=== PATIENT | male | born 1985 | race Caucasian/White ===

== ENCOUNTER → 2016-10-30 | Outpatient (REF) | payer OTHER ==
[~2016-10-30] MED LIST: ADV250INH INH; ADVA230A INH; IBUP800T23 PO; PROA1AER INH
[2016-11-02 14:15] LABS: D001-IgE D pteronyssinus 0.13 kU/L (Class 0/I); E005-IgE Dog Dander 1.54 kU/L (Class III); G002-IgE Bermuda Grass < 0.10 kU/L (Class 0); G008-IgE Kentucky Bluegrass < 0.10 kU/L (Class 0); M001-IgE Penicillium chrysogen < 0.10 kU/L (Class 0); M002 IgE Cladosporium herbaru < 0.10 kU/L (Class 0); M003 IgE Aspergillus fumigatu < 0.10 kU/L (Class 0); M006-IgE Alternaria alternata < 0.10 kU/L (Class 0); T001-IgE Maple/Box Elder < 0.10 kU/L (Class 0); T003-IgE Common Silver Birch < 0.10 kU/L (Class 0); T007-IgE Oak, White < 0.10 kU/L (Class 0); T008-IgE Elm, American < 0.10 kU/L (Class 0); T015-IgE Ash, White < 0.10 kU/L (Class 0); T041-IgE Hickory, White < 0.10 kU/L (Class 0); W001-IgE Ragweed, Short < 0.10 kU/L (Class 0); W009-IgE Plantain, English < 0.10 kU/L (Class 0); W014-IgE Pigweed, Rough < 0.10 kU/L (Class 0); W018-IgE Sheep Sorrel < 0.10 kU/L (Class 0)
== END ==
LOC: M LAB REF 12:44
PROVIDERS: ATTEND Nurse Practitioner Adult Health
DX: J45.40 Moderate persistent asthma, uncomplicated (principal)

== ENCOUNTER 2016-10-31 15:50 | Inpatient (IN) | payer OTHER ==
[~2016-10-31] VITALS: Ht 167.6 cm; Wt 103.4 kg
[2016-10-31] MEDS ORDERED: ADV250INH INH (16:05)
[2016-10-31] MEDS ORDERED: PROA1AER INH (16:06)
[2016-10-31] MEDS ORDERED: IBUP800T23 PO (16:07)
[2016-10-31 17:40] LABS: MEAN CORPUSCULAR HEMOGLOBIN 30.9 pg (27.0-33.0); MEAN CORPUSCULAR HGB CONC 34.8 g/dl (32.0-36.5); MEAN CORPUSCULAR VOLUME 88.8 fl (80.0-96.0); RED CELL DISTRIBUTION WIDTH 12.5 % (11.5-14.5); WHITE BLOOD COUNT 6.2 K/mm3 (4.0-10.0)
[2016-10-31] MEDS ORDERED: IBUPROFEN 600 MG TAB PO ONE (17:45)
[2016-10-31 18:14] LABS: METHADONE URINE NEGATIVE (NEGATIVE)
[2016-10-31 18:14] LABS: ALBUMIN 3.7 GM/DL (3.2-5.2); ALBUMIN/GLOBULIN RATIO 1.12 (1.00-1.93); ALKALINE PHOSPHATASE 85 U/L (45-117); ALT/SGPT 97 U/L (12-78); ANION GAP 11 MEQ/L (8-16); AST/SGOT 26 U/L (15-37); BILIRUBIN,DIRECT < 0.1 MG/DL (0.0-0.2); BILIRUBIN,TOTAL 0.3 MG/DL (0.2-1.0); BLOOD UREA NITROGEN 18 MG/DL (7-18); CALCIUM LEVEL 8.6 MG/DL (8.5-10.1); CARBON DIOXIDE LEVEL 25 MEQ/L (21-32); CHLORIDE LEVEL 107 MEQ/L (98-107); CREATININE FOR GFR 0.93 MG/DL (0.70-1.30); GLOMERULAR FILTRATION RATE > 60.0 (>60); GLUCOSE, FASTING 102 MG/DL (70-105); POTASSIUM SERUM 4.2 MEQ/L (3.5-5.1); SODIUM LEVEL 143 MEQ/L (136-145)
[2016-10-31] MEDS ORDERED: ADVA230A INH (19:05)
[2016-10-31 22:38] VITALS: BP 128/90
[2016-11-01] MEDS ORDERED: ALBUTEROL 90 MCG/ACT 8GM HFA INHALER INH PRN
[2016-11-01] MEDS ORDERED: MAALOX 30 ML SUSP *UDC PO PRN
[2016-11-01] MEDS ORDERED: MOM 30ML SUSPENSION UDC PO PRN
[2016-11-01] MEDS: IBUPROFEN 800 MG TAB PO PRN ×3 (00:45→18:58)
[2016-11-01] MEDS: traZODone 50 MG TAB PO PRN (00:45)
[2016-11-01] MEDS: ADVAIR HFA 230/21 INHALER INH SCH ×3 (00:45→21:32)
[2016-11-01 06:47] VITALS: BP 119/63
--- NOTE | 2016-11-01 11:09 | HPEPDOC ---
Medical History and Physical Date of Admission Oct 31, 2016 at 18:49 History and Physical PCP: [facility] ATTENDING: Dr. Jaylen Dockery HPI: 30yoM admitted to [facility] for unspecified depressive disorder, being medically examined today. Patient states he had 4 wisdom teeth removed last week. Since then he has had aching, throbbing, soreness. He has been taking ibuprofen for pain. Denies any fevers, chills, weakness, fatigue, MORALES, CP, SOB, cough, palpitations, abdominal pain, N/V/D or changes in bowel or bladder habits. PMHx: Anxiety Depression Asthma PSHX: [place] teeth extraction 11/09 SOCHX: Resides in: [place], from [place] Marital Status: Single Kids: None Employment: Active duty Tobacco use: Denies ETOH: 5-6 drinks every 2 months Illicit Drugs: Denies IV Drug Use: Denies Tattoos done unprofessionally: Denies FAMHX: Mother: Alive, diabetes, asthma, hypertension Father: Alive, [place], diabetes, lung disease Siblings: 2 sisters Alive, well Children: None Unexpected deaths due to medical reasons: None. ROS: As noted in HPI, otherwise 11pt ROS of systems reviewed and unremarkable. PE: GEN: 30yoM, appears stated age. Well-nourished, well developed. No acute distress. Alert and oriented x 3. Pleasant, interactive. HEENT: Normocephalic, atraumatic. Pupils are equal, round, and reactive to light. Extraocular movements are intact. No nystagmus appreciated. Sclera are nonicteric. Conjunctiva without injection. Nose midline. Nasal turbinates without bogginess. EACs both patent BL. TMs both visualized and ewing with good cone of light, no bulging or erythema. No facial asymmetry. Moist mucous membranes. Dentition poor, patient is status post wisdom teeth removal with subsequent noted erythema and edema of surrounding gingival areas, no drainage. No tenderness with palpation of the jaw area. Pharynx pink and moist, no cobblestoning. Neck supple, trachea midline. No lymphadenopathy or thyromegaly appreciated. CHEST: Regular rate and rhythm, +S1, +S2 LUNGS: Clear to auscultation bilaterally. No wheezes, rales, or rhonchi. Breathing appears symmetric and easy. Patient is speaking in full sentences. No accessory muscle use. ABD: Round, soft, non-tender, non-distended. +Bowel sounds throughout. No rebound or guarding. No costovertebral angle tenderness. EXT: Pulses 2+ bilaterally dorsalis pedis and radial. No lower extremity edema appreciated. SKIN: [place], dry, warm. Capillary refill <2sec. No rashes. NEURO: Alert and oriented x 3. Cranial nerves III-XII are intact. No focal deficits appreciated. EKG: Pending A&P: 30yoM admitted to [facility] for unspecified depressive disorder 1. Psych. Plan per Psychiatry. Obtain baseline EKG to assure the safety of psychiatric medications as they can prolong the QT interval. 2. Asthma. Continue Advair 2 puffs twice a day. Continue albuterol HFA 2 puffs every 4 hours as needed. 4. Follow up with PCP on discharge. 5. Status post wisdom teeth extraction. Will initiate chlorhexidine rinse after each meal. Augmentin 875 mg by mouth twice a day. Outpatient follow-up with oral surgery following discharge. 6. Elevated ALT. Recheck CMP in a.m. 7. Staff member present throughout exam, Lewis Mejia. Vital Signs Vital Signs Label Value Date Time Patient Temperature 97.0 degrees F 11/01/16 0647 Temperature Source Tympanic 11/01/16 0647 Pulse 86 11/01/16 0647 Respiratory Rate 18 bpm 11/01/16 0647 Blood Pressure Assessment 119/63 (81) 11/01/16 0647 Laboratory Data Labs 24H Laboratory Tests 2 10/31/16 17:34: Acetaminophen Level < 2.0L, Aspartate Amino Transf (AST/SGOT) 26, Alanine Aminotransferase (ALT/SGPT) 97H, Alkaline Phosphatase 85, Total Bilirubin 0.3, Direct Bilirubin < 0.1, Albumin 3.7, Albumin/Globulin Ratio 1.12, Anion Gap 11, Calcium Level 8.6, Ethyl Alcohol Level < 0.003, Glomerular Filtration Rate > 60.0, Salicylates Level < 1.7L, Thyroid Stimulating Hormone (TSH) 1.270, Total Protein 7.0 10/31/16 17:37: Urine Amphetamines Screen NEGATIVE, Urine Benzodiazepines Screen NEGATIVE, Urine Opiates Screen NEGATIVE, Urine Barbiturates Screen NEGATIVE, Urine Cannabinoids Screen NEGATIVE, Urine Cocaine Metabolite Screen NEGATIVE, Urine Methadone Screen NEGATIVE, Urine Phencyclidine Screen NEGATIVE CBC/BMP Laboratory Tests 3/8/17 17:34 Red Blood Count 4.56, Mean Corpuscular Volume 88.8, Mean Corpuscular Hemoglobin 30.9, Mean Corpuscular Hemoglobin Concent 34.8, Red Cell Distribution Width 12.5 Home Medications Scheduled Salmeterol/Fluticasone (Advair Hfa 230-21 Mcg/Act) 1 Aer Aer 2 PUFF INH BID Scheduled PRN Albuterol Sulfate (Proair Hfa) 108 Mcg/Act Aer 2 PUFF INH PRN SOB/WHEEZING Ibuprofen (Ibuprofen) 800 Mg Tab 800 MG PO Q8H PRN PRN PAIN OR FEVER Allergies Coded Allergies: No Known Allergies (Unverified , 05/21/16) Alesha Rosales Nov 01, 2016 11:09
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
[2016-11-01] MEDS: AUGMENTIN 875 MG TAB PO SCH ×2 (11:43→21:31)
[2016-11-01] MEDS: CHLORHEXIDINE GLUCONATE 0.12 % 15ML UDC (PERIDEX ORAL RINSE) SSP SCH ×2 (13:16→18:54)
[2016-11-01] MEDS ORDERED: buPROPion **XL** TABLET 150MG (WELLBUTRIN XL) PO ONE (13:45)
[2016-11-01] MEDS: ACETAMINOPHEN TAB 650MG DOSE (2X325MG) PO PRN (14:39)
[2016-11-01 18:00] VITALS: BP 134/83
[2016-11-02 06:47] VITALS: BP 127/76
[2016-11-02 07:28] LABS: ALBUMIN 3.5 GM/DL (3.2-5.2); ALBUMIN/GLOBULIN RATIO 1.06 (1.00-1.93); ALKALINE PHOSPHATASE 77 U/L (45-117); ALT/SGPT 82 U/L (12-78); ANION GAP 10 MEQ/L (8-16); AST/SGOT 23 U/L (15-37); BILIRUBIN,TOTAL 0.3 MG/DL (0.2-1.0); BLOOD UREA NITROGEN 15 MG/DL (7-18); CALCIUM LEVEL 8.6 MG/DL (8.5-10.1); CARBON DIOXIDE LEVEL 28 MEQ/L (21-32); CHLORIDE LEVEL 105 MEQ/L (98-107); CREATININE FOR GFR 0.88 MG/DL (0.70-1.30); GLOMERULAR FILTRATION RATE > 60.0 (>60); GLUCOSE, FASTING 92 MG/DL (70-105); POTASSIUM SERUM 4.1 MEQ/L (3.5-5.1); SODIUM LEVEL 143 MEQ/L (136-145); TOTAL PROTEIN 6.8 GM/DL (6.4-8.2)
--- NOTE | 2016-11-02 07:29 | ECGEPIP ---
Stationary ECG Study [facility] Test Date: 2016-11-01 Pat Name: NEERAJ HUGHES Department: Room: [place] [address] Gender: M Wrapper Hand: MARLIN : 1985 Requested By: Alesha Rosales Order Number: [id number] Reading MD: Hanna Alfaro Measurements Intervals [place] Rate: 74 P: 48 VT: 156 QRS: 52 QRSD: 110 T: 35 QT: 382 QTc: 426 Interpretive Statements SINUS RHYTHM POSSIBLE INFERIOR MYOCARDIAL INFARCTION, OF INDETERMINATE AGE WITH POSTERIOR EXTENSION pROB EARLY REOLAR CHANGES NO PRIOR CLINICAL CORRELATION Electronically Signed On 11-02-2016 7:29:30 EST by Hanna Alfaro
[2016-11-02] MEDS: AUGMENTIN 875 MG TAB PO SCH ×2 (08:19→22:15)
[2016-11-02] MEDS: CHLORHEXIDINE GLUCONATE 0.12 % 15ML UDC (PERIDEX ORAL RINSE) SSP SCH ×3 (08:19→17:52)
[2016-11-02] MEDS: ADVAIR HFA 230/21 INHALER INH SCH ×2 (08:19→22:16)
[2016-11-02] MEDS: buPROPion **XL** TABLET 150MG (WELLBUTRIN XL) PO SCH (08:20)
[2016-11-02] MEDS: IBUPROFEN 800 MG TAB PO PRN ×2 (08:21→17:55)
--- NOTE | 2016-11-02 13:47 | IPNPDOC ---
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 Patient is observed to be watching television in the lounge, isolated to self, readily engages with aligner typewriter for assessment purposes. Patient reports current anxiety level of 6/10, depression 7/10, endorses intermittent fleeting passive suicidal ideation and is able to agree to seek assistance from unit staff should symptoms worsen or become unmanageable. Patient denies having plan or intent to harm self. Patient denies homicidal thinking, denies audiovisual hallucinations, denies urge to engage in self-injurious behavior. Patient has been visible on unit, attending groups, indicates his energy level remains low. Patient states he experienced difficulty falling asleep last night, a lot of did not utilize trazodone and states he is aware medication remains available to him as needed for sleep. Patient reports reduction in appetite since starting Wellbutrin, denies challenges with concentration and focus, denies medication side effects. Patient presents with no signs of acute distress at time of interaction. VITALS: See below NEW TEST RESULTS: Please see below. Patient's labs on admission indicate low HCT and elevated ALT, ALT within normal limits on recheck. UDS negative on admission EKG SINUS RHYTHM POSSIBLE INFERIOR MYOCARDIAL INFARCTION, OF INDETERMINATE AGE WITH POSTERIOR EXTENSION PROB EARLY REOLAR CHANGES NO PRIOR CLINICAL CORRELATION. PA is aware and has requested consult with Dr. Ying; patient is asymptomatic. PAST MEDICAL/SURGICAL HISTORY: Asthma, recent wisdom tooth extraction on . Patient denies history of seizure or head injury and denies other chronic health conditions. CURRENT MEDICATIONS: See below MENTAL STATUS EXAMINATION: Patient is a 30-year-old single male who is pleasant and cooperative, makes improved eye contact today, exhibits adequate personal hygiene, is dressed in hospital clothing, ambulance was steady gait, is somewhat obese, appears stated age. Speech: Is slow, low volume, normal rhythm, coherent, spontaneous. Language skills are intact. Thought processes: Clear, goal-directed. Thought content: Rational, logical. Abstract reasoning: Appears intact Description of associations: Intact. Description of abnormal or psychotic thoughts: denies hallucinations, delusions , preoccupation with violence, homicidal or suicidal ideation, and obsessions]. Judgment: Poor. Insight: Poor. Orientation to time, place and person. Recent and remote memory: Appears intact Attention span and concentration: Limited. Language: Normal. Fund of knowledge: Adequate. Mood: "I feel depressed but I worry about going back to [place] and how my command is going to treat me." Appears depressed, anxious, no mood lability noted at time of interaction. Affect: Blunted, brightens X 1, congruent with mood. DIAGNOSES: Adjustment disorder with mixed anxiety and depressed mood ASSESSMENT: Patient appears to be adjusting to unit, has been isolating to room less, has been visible on unit, and is attending groups. Patient has been encouraged to participate in unit programming in order to facilitate the development of new coping mechanisms. Patient took second dose today of Wellbutrin XL 150 mg po q am, denies medication side effects other than reduced appetite which may be associated with medication. Patient has utilized trazodone 1 since entering hospital, notes medication is effective and he denied side effects. Patient denies current suicidal or homicidal ideation and verbalizes awareness of how to access supportive services on the unit if needed. Will monitor patient's response to medications, monitor for side effects , evaluate resolution of suicidal ideation, patient safety, and readiness for discharge. Patient continues to state he desires MEB from . 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 Patient verbalizes understanding of discharge plan will entail return to [place] for safety check and participation in outpatient behavioral health services for psychotherapy and medication management. MANAGEMENT PLAN: Continue Wellbutrin XL 150 mg po q am and trazodone 50 mg po hs PRN insomnia Maintain safety precautions Patient to attend groups and participate in unit programming to develop coping strategies Engage patient in discharge planning process and arrange meeting with command to evaluate safe discharge planning when appropriate Patient to follow up with [place] PCM upon discharge TIME SPENT: 35 minutes Vital Signs Vital Signs Date Time Temp Pulse Resp B/P Pulse Ox O2 Delivery O2 Flow Rate FiO2 11/02/16 06:47 97.1 73 16 127/76 10/31/16 22:25 98 Room Air Laboratory Data 24H Labs Laboratory Tests 2 11/02/16 06:22: Blood Urea Nitrogen 15, Creatinine 0.88, Sodium Level 143, Potassium Level 4.1, Chloride Level 105, Carbon Dioxide Level 28, Calcium Level 8.6, Aspartate Amino Transf (AST/SGOT) 23, Alanine Aminotransferase (ALT/SGPT) 82H, Alkaline Phosphatase 77, Total Bilirubin 0.3, Total Protein 6.8, Albumin 3.5, Albumin/ Globulin Ratio 1.06, Anion Gap 10, Glomerular Filtration Rate > 60.0 CBC/BMP Laboratory Tests 11/02/16 06:22 Calcium Level 8.6, Aspartate Amino Transf (AST/SGOT) 23, Alanine Aminotransferase (ALT/SGPT) 82 H, Alkaline Phosphatase 77, Total Bilirubin 0.3, Total Protein 6.8, Albumin 3.5 Current Medications Current Medications Acetaminophen (Tylenol Tab) 650 mg Q6HP PRN PO HEADACHE or DISCOMFORT Last administered on 11/01/16 14:39; Start 11/01/16 at 00:00; Stop 12/01/16 at 00:00 Al Hydrox/Mg Hydrox/Simethicone (Mylanta) 30 ml Q4HP PRN PO HEARTBURN/ INDIGESTION; Start 11/01/16 at 00:00; Stop 12/01/16 at 00:00 Albuterol Sulfate (Proventil, Ventolin Hfa) 2 puff Q4HP PRN INH SHORTNESS OF BREATH; Start 11/01/16 at 00:00; Stop 12/01/16 at 00:00 Amoxicillin/ Clavulanate Potassium (Augmentin) 875 mg BID PO Last administered on 11/02/16 08:19; Start 11/01/16 at 09:00; Stop 11/08/16 at 08:59 Bupropion HCl (Wellbutrin Xl) 150 mg QAM PO Last administered on 11/02/16 08: 20; Start 11/02/16 at 09:00; Stop 12/02/16 at 08:59 Chlorhexidine Gluconate (Peridex Oral Rinse) 15 ml PC SSP Last administered on 11/02/16 12:54; Start 11/01/16 at 13:00; Stop 12/01/16 at 12:59 Home Med (Med Rec Complete!) ASDIRECTED XX ; Start 10/31/16 at 19:15; Stop at 19:15; Status DC Ibuprofen (Advil) 800 mg Q8HP PRN PO PAIN Last administered on 11/02/16 08:21 ; Start 11/01/16 at 00:00; Stop 12/01/16 at 00:00 Magnesium Hydroxide (Milk Of Magnesia) 30 ml DAILYPRN PRN PO CONSTIPATION; Start 11/01/16 at 00:00; Stop 12/01/16 at 00:00 Salmeterol Xinafoate/ Fluticasone (Advair Hfa 230/ 21) 2 puff BID INH Last administered on 11/02/16 08:19; Start 10/31/16 at 21:00; Stop 11/30/16 at 20:59 Trazodone HCl (Desyrel) 50 mg QHSP PRN PO INSOMNIA Last administered on 00:45; Start 11/01/16 at 00:00; Stop 12/01/16 at 00:00 Allergies Coded Allergies: No Known Allergies (Unverified , 05/21/16) Sonia Maxwell Nov 02, 2016 13:47
[2016-11-02 18:00] VITALS: BP 140/85
[2016-11-03 07:08] VITALS: BP 116/61
[2016-11-03 07:37] LABS: ALBUMIN 3.7 GM/DL (3.2-5.2); ALBUMIN/GLOBULIN RATIO 1.06 (1.00-1.93); ALKALINE PHOSPHATASE 75 U/L (45-117); ALT/SGPT 88 U/L (12-78); ANION GAP 10 MEQ/L (8-16); AST/SGOT 27 U/L (15-37); BILIRUBIN,TOTAL 0.3 MG/DL (0.2-1.0); BLOOD UREA NITROGEN 14 MG/DL (7-18); CALCIUM LEVEL 9.2 MG/DL (8.5-10.1); CARBON DIOXIDE LEVEL 27 MEQ/L (21-32); CHLORIDE LEVEL 105 MEQ/L (98-107); CREATININE FOR GFR 0.86 MG/DL (0.70-1.30); GLOMERULAR FILTRATION RATE > 60.0 (>60); GLUCOSE, FASTING 87 MG/DL (70-105); POTASSIUM SERUM 4.2 MEQ/L (3.5-5.1); SODIUM LEVEL 142 MEQ/L (136-145); TOTAL PROTEIN 7.2 GM/DL (6.4-8.2)
[2016-11-03] MEDS: ADVAIR HFA 230/21 INHALER INH SCH ×2 (08:20→21:48)
[2016-11-03] MEDS: CHLORHEXIDINE GLUCONATE 0.12 % 15ML UDC (PERIDEX ORAL RINSE) SSP SCH ×3 (08:20→18:04)
[2016-11-03] MEDS: IBUPROFEN 800 MG TAB PO PRN ×2 (08:20→18:04)
[2016-11-03] MEDS: buPROPion **XL** TABLET 150MG (WELLBUTRIN XL) PO SCH (08:20)
[2016-11-03] MEDS: AUGMENTIN 875 MG TAB PO SCH ×2 (08:21→21:48)
--- NOTE | 2016-11-03 14:33 | ECGEPIP ---
Stationary ECG Study [facility] Test Date: 2016-11-02 Pat Name: NEERAJ HUGHES Department: Room: [place] [address] Gender: M Application Integration Architect: RAD : 1985 Requested By: Alesha Rosales Order Number: [id number] Reading MD: Hanna Alfaro Measurements Intervals [place] Rate: 89 P: 52 GA: 171 QRS: 53 QRSD: 104 T: 39 QT: 352 QTc: 431 Interpretive Statements SINUS RHYTHM POSSIBLE INFERIORPOST MYOCARDIAL INFARCTION, OF INDETERMINATE AGE INFEFOLAT ST ELEV PERSISTS CLINICAL MAXIM Electronically Signed On 11-03-2016 14:32:53 EST by Hanna Alfaro
[2016-11-03 18:00] VITALS: BP 140/89
[2016-11-03] MEDS: traZODone 50 MG TAB PO PRN (23:59)
[2016-11-04 06:55] VITALS: BP 147/78
[2016-11-04] MEDS: AUGMENTIN 875 MG TAB PO SCH ×2 (09:07→21:12)
[2016-11-04] MEDS: CHLORHEXIDINE GLUCONATE 0.12 % 15ML UDC (PERIDEX ORAL RINSE) SSP SCH ×3 (09:07→17:54)
[2016-11-04] MEDS: ADVAIR HFA 230/21 INHALER INH SCH ×2 (09:07→21:12)
[2016-11-04] MEDS: buPROPion **XL** TABLET 150MG (WELLBUTRIN XL) PO SCH (09:07)
[2016-11-04] MEDS: IBUPROFEN 800 MG TAB PO PRN ×2 (09:10→21:12)
[2016-11-04 18:00] VITALS: BP 132/77
[2016-11-04] MEDS: traZODone 50 MG TAB PO PRN (23:23)
[2016-11-05 06:22] VITALS: BP 141/70
[2016-11-05] MEDS: buPROPion **XL** TABLET 150MG (WELLBUTRIN XL) PO SCH (08:56)
[2016-11-05] MEDS: ADVAIR HFA 230/21 INHALER INH SCH ×2 (08:56→22:00)
[2016-11-05] MEDS: CHLORHEXIDINE GLUCONATE 0.12 % 15ML UDC (PERIDEX ORAL RINSE) SSP SCH ×3 (08:56→17:52)
[2016-11-05] MEDS: IBUPROFEN 800 MG TAB PO PRN ×2 (08:57→19:18)
[2016-11-05] MEDS: AUGMENTIN 875 MG TAB PO SCH ×2 (08:57→21:59)
[2016-11-05 12:42] LABS: ALBUMIN/GLOBULIN RATIO 1.14 (1.00-1.93); ALKALINE PHOSPHATASE 80 U/L (45-117); ALT/SGPT 99 U/L (12-78); ANION GAP 10 MEQ/L (8-16); AST/SGOT 36 U/L (15-37); BILIRUBIN,TOTAL 0.3 MG/DL (0.2-1.0); BLOOD UREA NITROGEN 15 MG/DL (7-18); CALCIUM LEVEL 9.9 MG/DL (8.5-10.1); CARBON DIOXIDE LEVEL 28 MEQ/L (21-32); CHLORIDE LEVEL 100 MEQ/L (98-107); CREATININE FOR GFR 0.91 MG/DL (0.70-1.30); GLOMERULAR FILTRATION RATE > 60.0 (>60); GLUCOSE, FASTING 92 MG/DL (70-105); POTASSIUM SERUM 4.3 MEQ/L (3.5-5.1); SODIUM LEVEL 138 MEQ/L (136-145); TOTAL PROTEIN 7.5 GM/DL (6.4-8.2)
--- NOTE | 2016-11-05 15:52 | IPNPDOC ---
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 Patient is observed to be watching television in the lounge, isolated to self, readily engages with aligner typewriter for assessment purposes. Patient reports current anxiety level of 6/10, depression 4/10, endorses ongoing intermittent fleeting passive suicidal ideation which she attributes to "sometimes thinking I just don 't want to wake up when I think about going back to [place]." Patient denies having plan or intent to harm self when he experiences passive suicidal ideation and is able to agree to seek assistance from unit staff should symptoms worsen or become unmanageable. Patient denies homicidal thinking, denies audiovisual hallucinations, denies urge to engage in self-injurious behavior. Patient has been visible on unit, attending groups, indicates his energy level remains low. Patient indicates some improvement in energy level, states he feels less anxious, and reports some reduction in symptoms of depression since starting Wellbutrin XL. Patient indicates challenges related to sleep maintenance last night and is requesting trazodone dose increase. Patient reports appetite is stable, denies challenges with concentration and focus, denies medication side effects. Patient presents with no signs of acute distress at time of interaction. VITALS: See below NEW TEST RESULTS: Please see below. Patient's labs on admission indicate low HCT and elevated ALT, ALT. ALT remains elevated on recheck, PA is aware and monitoring. PAST MEDICAL/SURGICAL HISTORY: Asthma, recent wisdom tooth extraction on . Patient denies history of seizure or head injury and denies other chronic health conditions. UDS negative on admission 11/01/16 EKG SINUS RHYTHM POSSIBLE INFERIOR MYOCARDIAL INFARCTION, OF INDETERMINATE AGE WITH POSTERIOR EXTENSION PROB EARLY REOLAR CHANGES NO PRIOR CLINICAL CORRELATION. PA is aware and has requested consult with Dr. Ying; patient is asymptomatic. 11/03/16 SINUS RHYTHM POSSIBLE INFERIORPOST MYOCARDIAL INFARCTION, OF INDETERMINATE AGE INFEFOLAT ST ELEV PERSISTS CLINICAL MAXIM. M.DNaldo has evaluated, patient is asymptomatic, recommendation being made for follow-up outpatient. CURRENT MEDICATIONS: See below MENTAL STATUS EXAMINATION: Patient is a 30-year-old single male who is pleasant and cooperative, makes fair eye contact today, exhibits adequate personal hygiene, is dressed in hospital clothing, ambulance was steady gait, is obese, appears stated age. Speech: Is slow, low volume, normal rhythm, coherent, spontaneous. Language skills are intact. Thought processes: Clear, goal-directed. Thought content: Rational, logical. Abstract reasoning: Appears intact Description of associations: Intact. Description of abnormal or psychotic thoughts: denies hallucinations, delusions , preoccupation with violence, homicidal or suicidal ideation, and obsessions]. Judgment: Limited Insight: Poor. Orientation to time, place and person. Recent and remote memory: Appears intact Attention span and concentration: Limited. Language: Normal. Fund of knowledge: Adequate. Mood: "I feel okay but I don't feel safe going back to [place]." Appears depressed, anxious, no mood lability noted at time of interaction. Affect: Blunted, brightens X 1, congruent with mood. DIAGNOSES: Adjustment disorder with mixed anxiety and depressed mood ASSESSMENT: Patient appears to be adjusting to unit, has been isolating to room less, has been visible on unit, and is attending groups. Patient has been encouraged to participate in unit programming in order to facilitate the development of new coping mechanisms. Patient indicates Wellbutrin XL is helping with mood, is requesting dose increase to trazodone for sleep. Patient denies medication side effects. Patient denies current suicidal or homicidal ideation and verbalizes awareness of how to access supportive services on the unit if needed. Will continue to monitor patient's response to medications, monitor for side effects, evaluate resolution of suicidal ideation, patient safety, and readiness for discharge. Patient continues to state he desires MEB from , makes no mention of Chapter for hygiene weight failure which is reportedly in progress and scheduled to finalize within the next 30 days. Patient verbalizes understanding of discharge plan will entail return to [facility] for safety check and participation in outpatient behavioral health services for psychotherapy and medication management. MANAGEMENT PLAN: Continue Wellbutrin XL 150 mg po q am. Increase trazodone to 100 mg po hs PRN insomnia Maintain safety precautions Patient to attend groups and participate in unit programming to develop coping strategies Engage patient in discharge planning process and arrange meeting with command to evaluate safe discharge planning when appropriate Patient to follow up with [facility] upon discharge TIME SPENT: 35 minutes Vital Signs Vital Signs Date Time Temp Pulse Resp B/P Pulse Ox O2 Delivery O2 Flow Rate FiO2 11/05/16 06:22 97.0 73 16 141/70 10/31/16 22:25 98 Room Air Laboratory Data 24H Labs Laboratory Tests 2 11/05/16 12:06: Blood Urea Nitrogen 15, Creatinine 0.91, Sodium Level 138, Potassium Level 4.3, Chloride Level 100, Carbon Dioxide Level 28, Calcium Level 9.9, Aspartate Amino Transf (AST/SGOT) 36, Alanine Aminotransferase (ALT/SGPT) 99H, Alkaline Phosphatase 80, Total Bilirubin 0.3, Total Protein 7.5, Albumin 4.0, Albumin/ Globulin Ratio 1.14, Anion Gap 10, Glomerular Filtration Rate > 60.0 CBC/BMP Laboratory Tests 11/05/16 12:06 Calcium Level 9.9, Aspartate Amino Transf (AST/SGOT) 36, Alanine Aminotransferase (ALT/SGPT) 99 H, Alkaline Phosphatase 80, Total Bilirubin 0.3, Total Protein 7.5, Albumin 4.0 Current Medications Current Medications Acetaminophen (Tylenol Tab) 650 mg Q6HP PRN PO HEADACHE or DISCOMFORT Last administered on 11/01/16 14:39; Start 11/01/16 at 00:00; Stop 12/01/16 at 00:00 Al Hydrox/Mg Hydrox/Simethicone (Mylanta) 30 ml Q4HP PRN PO HEARTBURN/ INDIGESTION; Start 11/01/16 at 00:00; Stop 12/01/16 at 00:00 Albuterol Sulfate (Proventil, Ventolin Hfa) 2 puff Q4HP PRN INH SHORTNESS OF BREATH; Start 11/01/16 at 00:00; Stop 12/01/16 at 00:00 Amoxicillin/ Clavulanate Potassium (Augmentin) 875 mg BID PO Last administered on 11/05/16 08:57; Start 11/01/16 at 09:00; Stop 11/08/16 at 08:59 Bupropion HCl (Wellbutrin Xl) 150 mg QAM PO Last administered on 11/05/16 08: 56; Start 11/02/16 at 09:00; Stop 12/02/16 at 08:59 Chlorhexidine Gluconate (Peridex Oral Rinse) 15 ml PC SSP Last administered on 11/05/16 13:04; Start 11/01/16 at 13:00; Stop 12/01/16 at 12:59 Home Med (Med Rec Complete!) ASDIRECTED XX ; Start 10/31/16 at 19:15; Stop at 19:15; Status DC Ibuprofen (Advil) 800 mg Q8HP PRN PO PAIN Last administered on 11/05/16 08:57 ; Start 11/01/16 at 00:00; Stop 12/01/16 at 00:00 Magnesium Hydroxide (Milk Of Magnesia) 30 ml DAILYPRN PRN PO CONSTIPATION; Start 11/01/16 at 00:00; Stop 12/01/16 at 00:00 Salmeterol Xinafoate/ Fluticasone (Advair Hfa 230/ 21) 2 puff BID INH Last administered on 11/05/16 08:56; Start 10/31/16 at 21:00; Stop 11/30/16 at 20:59 Trazodone HCl (Desyrel) 50 mg QHSP PRN PO INSOMNIA Last administered on 23:23; Start 11/01/16 at 00:00; Stop 12/01/16 at 00:00 Allergies Coded Allergies: No Known Allergies (Unverified , 05/21/16) Sonia Maxwell Nov 05, 2016 15:52
[2016-11-05 18:00] VITALS: BP 132/81
[2016-11-05] MEDS: ACETAMINOPHEN TAB 650MG DOSE (2X325MG) PO PRN (21:59)
[2016-11-05] MEDS: traZODone 100 MG TAB PO PRN (23:01)
[2016-11-06 06:46] VITALS: BP 118/61
[2016-11-06] MEDS: CHLORHEXIDINE GLUCONATE 0.12 % 15ML UDC (PERIDEX ORAL RINSE) SSP SCH ×3 (08:36→17:41)
[2016-11-06] MEDS: AUGMENTIN 875 MG TAB PO SCH ×2 (08:36→21:49)
[2016-11-06] MEDS: ADVAIR HFA 230/21 INHALER INH SCH ×2 (08:36→21:49)
[2016-11-06] MEDS: buPROPion **XL** TABLET 150MG (WELLBUTRIN XL) PO SCH (08:36)
--- NOTE | 2016-11-06 08:52 | REP ---
HEPATIC ULTRASOUND: 11/06/2016. Clinical history: Elevated LFTs. No prior study. Findings: Sonographic evaluation of the right upper quadrant shows the liver homogeneous in echotexture. There is no focal hepatic mass, intrahepatic biliary dilatation nor perihepatic ascites. No gross hepatomegaly. Gallbladder is adequately filled and has a wall thickness of 1.5 mm which is normal. I see no stone, sludge or pericholecystic fluid. Common duct is 1.9 mm. No filling defect within it. Pancreas segments visible were unremarkable with the tail obscured by bowel gas shadowing. Right kidney is 11.9 x 5.6 x 5.3 cm without hydronephrosis or stone. Impression: 1. The liver, gallbladder, common bile duct and kidney are unremarkable. 2. Pancreas head and body were unremarkable with the tail obscured by gas shadowing. 3. No ascites or other significant finding. Signed by Mariano Alonzo MD 11/06/2016 09:05 A
[2016-11-06 18:00] VITALS: BP 125/80
--- NOTE | 2016-11-06 18:10 | IPNPDOC ---
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 Patient is observed to be watching television in the lounge, isolated to self, readily engages with health underwriter for assessment purposes. Patient reports current anxiety level of 5/10, depression 4/10, endorses ongoing intermittent fleeting passive suicidal ideation which she attributes to "I don't want to go back to [facility]." Patient denies having plan or intent to harm self when he experiences passive suicidal ideation and is able to agree to seek assistance from unit staff should symptoms worsen or become unmanageable. Patient denies homicidal thinking, denies audiovisual hallucinations, denies urge to engage in self-injurious behavior. Patient has been visible on unit, attending groups, indicates his energy level is stabilizing. Patient indicates he feels Wellbutrin is helping to reduce symptoms of anxiety and depression, adds increased dose of trazodone helped to improve sleep last night, denies nightmares symptoms. Patient reports appetite is stable, denies challenges with concentration and focus, denies medication side effects. Patient presents with no signs of acute distress at time of interaction. Addendum: Mobile Unit Assistant patient spoke at length today about patient's Chapter from [facility] and refusal to sign consents for treatment team to communicate with patient 's family regarding his current inpatient treatment. Patient agreed to consider signing ROIs and informed health underwriter that he wants to be released from [facility] but would prefer to be MEB'd not chaptered. 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 Patient indicated he feels frustrated with Chapter process and attributes this to his symptoms of anxiety, depression, passive SI. Patient indicates he is attempting to learn alternative coping mechanisms for dealing with the [employer] and being chaptered while he is in the inpatient environment. Patient also makes inquiry as to the implications of his psychiatric diagnosis of adjustment disorder. VITALS: See below NEW TEST RESULTS: Please see below. Patient's labs on admission indicate low HCT and elevated ALT, ALT. ALT remains elevated on recheck, PA is aware and monitoring. 11/06/16 liver US unremarkable. PAST MEDICAL/SURGICAL HISTORY: Asthma, recent wisdom tooth extraction on . Patient denies history of seizure or head injury and denies other chronic health conditions. UDS negative on admission 11/01/16 EKG SINUS RHYTHM POSSIBLE INFERIOR MYOCARDIAL INFARCTION, OF INDETERMINATE AGE WITH POSTERIOR EXTENSION PROB EARLY REOLAR CHANGES NO PRIOR CLINICAL CORRELATION. PA is aware and has requested consult with Dr. Ying; patient is asymptomatic. 11/03/16 SINUS RHYTHM POSSIBLE INFERIORPOST MYOCARDIAL INFARCTION, OF INDETERMINATE AGE INFEFOLAT ST ELEV PERSISTS CLINICAL MAXIM. MNaldoDNaldo has evaluated, patient is asymptomatic, recommendation being made for follow-up outpatient. CURRENT MEDICATIONS: See below MENTAL STATUS EXAMINATION: Patient is a 30-year-old single male who is pleasant and cooperative, makes fair eye contact today, exhibits adequate personal hygiene, is dressed in hospital clothing, ambulance was steady gait, is obese, appears stated age. Speech: Is slow, low volume, normal rhythm, coherent, spontaneous. Language skills are intact. Thought processes: Clear, goal-directed. Thought content: Rational, logical. Abstract reasoning: Appears intact Description of associations: Intact. Description of abnormal or psychotic thoughts: denies hallucinations, delusions , preoccupation with violence, homicidal or suicidal ideation, and obsessions]. Judgment: Limited Insight: Poor, some improvement noted today. Orientation to time, place and person. Recent and remote memory: Appears intact Attention span and concentration: Limited. Language: Normal. Fund of knowledge: Adequate. Mood: "I feel okay but I think I'll want to hurt myself if I go back to [employer] , I just don't want to go back there." Appears depressed, anxious, no mood lability noted at time of interaction. Affect: Blunted, brightens X 1, congruent with mood. DIAGNOSES: Adjustment disorder with mixed anxiety and depressed mood ASSESSMENT: Patient appears to be adjusting to unit, has been isolating to room less, has been visible on unit, and is attending groups. Patient has been encouraged to participate in unit programming in order to facilitate the development of new coping mechanisms. Patient indicates Wellbutrin XL is helping with mood, notes recent dose increase to trazodone is also effective for sleep. Patient denies medication side effects. Patient denies current suicidal or homicidal ideation and verbalizes awareness of how to access supportive services on the unit if needed. Will continue to monitor patient's response to medications, monitor for side effects, evaluate resolution of suicidal ideation, patient safety, and readiness for discharge. Patient continues to state he desires MEB from , is aware he is being chaptered which is scheduled to finalize within the next 30-40 days. Patient verbalizes understanding of discharge plan will entail return to [facility] for safety check and participation in outpatient behavioral health services for psychotherapy and medication management. MANAGEMENT PLAN: Continue Wellbutrin XL 150 mg po q am and trazodone 100 mg po hs PRN insomnia Maintain safety precautions Patient to attend groups and participate in unit programming to develop coping strategies Engage patient in discharge planning process and arrange meeting with command to evaluate safe discharge planning when appropriate Patient to follow up with [facility] PCM upon discharge TIME SPENT: 35 minutes Vital Signs Vital Signs Date Time Temp Pulse Resp B/P Pulse Ox O2 Delivery O2 Flow Rate FiO2 11/06/16 06:46 97.0 69 16 118/61 10/31/16 22:25 98 Room Air Current Medications Current Medications Acetaminophen (Tylenol Tab) 650 mg Q6HP PRN PO HEADACHE or DISCOMFORT Last administered on 11/05/16 21:59; Start 11/01/16 at 00:00; Stop 12/01/16 at 00:00 Al Hydrox/Mg Hydrox/Simethicone (Mylanta) 30 ml Q4HP PRN PO HEARTBURN/ INDIGESTION; Start 11/01/16 at 00:00; Stop 12/01/16 at 00:00 Albuterol Sulfate (Proventil, Ventolin Hfa) 2 puff Q4HP PRN INH SHORTNESS OF BREATH; Start 11/01/16 at 00:00; Stop 12/01/16 at 00:00 Amoxicillin/ Clavulanate Potassium (Augmentin) 875 mg BID PO Last administered on 11/06/16 08:36; Start 11/01/16 at 09:00; Stop 11/08/16 at 08:59 Bupropion HCl (Wellbutrin Xl) 150 mg QAM PO Last administered on 11/06/16 08: 36; Start 11/02/16 at 09:00; Stop 12/02/16 at 08:59 Chlorhexidine Gluconate (Peridex Oral Rinse) 15 ml PC SSP Last administered on 11/06/16 17:41; Start 11/01/16 at 13:00; Stop 12/01/16 at 12:59 Home Med (Med Rec Complete!) ASDIRECTED XX ; Start 10/31/16 at 19:15; Stop at 19:15; Status DC Ibuprofen (Advil) 800 mg Q8HP PRN PO PAIN Last administered on 11/05/16 19:18 ; Start 11/01/16 at 00:00; Stop 12/01/16 at 00:00 Magnesium Hydroxide (Milk Of Magnesia) 30 ml DAILYPRN PRN PO CONSTIPATION; Start 11/01/16 at 00:00; Stop 12/01/16 at 00:00 Salmeterol Xinafoate/ Fluticasone (Advair Hfa 230/ 21) 2 puff BID INH Last administered on 11/06/16 08:36; Start 10/31/16 at 21:00; Stop 11/30/16 at 20:59 Trazodone HCl (Desyrel) 50 mg QHSP PRN PO INSOMNIA Last administered on 23:23; Start 11/01/16 at 00:00; Stop 11/05/16 at 16:07; Status DC Trazodone HCl (Desyrel) 100 mg QHSP PRN PO INSOMNIA Last administered on 23:01; Start 11/05/16 at 16:15; Stop 12/05/16 at 16:14 Allergies Coded Allergies: No Known Allergies (Unverified , 05/21/16) Sonia Maxwell Nov 06, 2016 18:09
[2016-11-06] MEDS: IBUPROFEN 800 MG TAB PO PRN (21:52)
[2016-11-06] MEDS: traZODone 100 MG TAB PO PRN (22:46)
[2016-11-07 06:00] VITALS: BP 96/51
[2016-11-07] MEDS: AUGMENTIN 875 MG TAB PO SCH ×2 (08:43→22:58)
[2016-11-07] MEDS: ADVAIR HFA 230/21 INHALER INH SCH ×2 (08:44→22:57)
[2016-11-07] MEDS: CHLORHEXIDINE GLUCONATE 0.12 % 15ML UDC (PERIDEX ORAL RINSE) SSP SCH ×3 (08:44→18:16)
[2016-11-07] MEDS: IBUPROFEN 800 MG TAB PO PRN ×2 (08:44→22:59)
[2016-11-07 08:48] LABS: ALBUMIN 3.8 GM/DL (3.2-5.2); ALBUMIN/GLOBULIN RATIO 1.06 (1.00-1.93); ALKALINE PHOSPHATASE 82 U/L (45-117); ALT/SGPT 97 U/L (12-78); ANION GAP 11 MEQ/L (8-16); AST/SGOT 36 U/L (15-37); BILIRUBIN,TOTAL 0.3 MG/DL (0.2-1.0); BLOOD UREA NITROGEN 15 MG/DL (7-18); CALCIUM LEVEL 9.2 MG/DL (8.5-10.1); CARBON DIOXIDE LEVEL 28 MEQ/L (21-32); CHLORIDE LEVEL 102 MEQ/L (98-107); CREATININE FOR GFR 1.09 MG/DL (0.70-1.30); GLOMERULAR FILTRATION RATE > 60.0 (>60); GLUCOSE, FASTING 133 MG/DL (70-105); POTASSIUM SERUM 4.2 MEQ/L (3.5-5.1); SODIUM LEVEL 141 MEQ/L (136-145); TOTAL PROTEIN 7.4 GM/DL (6.4-8.2)
[2016-11-07] MEDS: buPROPion **XL** TABLET 150MG (WELLBUTRIN XL) PO SCH (09:14)
[2016-11-07 18:00] VITALS: BP 130/75
--- NOTE | 2016-11-07 18:55 | IPNPDOC ---
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 Patient engages easily for assessment purposes, continues to express concerns about his ability to remain safe if discharged to [facility]. Patient reports current anxiety level of 3/10, depression 5/10, endorses ongoing intermittent fleeting passive suicidal ideation with no plan or intent, notes symptoms occur approximately one time per day, states "my unit is the problem." Patient remains able to agree to seek assistance from unit staff should symptoms worsen or become unmanageable. Patient denies homicidal thinking, denies audiovisual hallucinations, denies urge to engage in self-injurious behavior. Patient has been visible on unit, attending groups, indicates his energy level is stabilizing. Patient indicates today he is "not sure" if Wellbutrin is helping to reduce symptoms of anxiety and depression, states he did not sleep well last night due to latency challenges, denies nighttime waking and nightmare symptoms. Patient reports appetite is stable and feels he is more in control of food intake, denies challenges with concentration and focus, denies medication side effects. Patient presents with no signs of acute distress at time of interaction. Appropriate water amount consumption was discussed with patient who had concerns he might be "flushing" medication out of his system. Addendum: Bar Waiter/Waitress and patient spoke at length again today about patient's Chapter from [employer] ([employer]) and refusal to sign consents for treatment team to communicate with patient's family regarding his current inpatient treatment. Patient agreed to consider signing ROIs and informed writer producer that he wants to be released from [employer] but would prefer to be discharged to [facility] and be MEB'd, not chaptered. Patient verbalizes desire to return home with family after exiting [employer] ([employer]) and to attend college for software design. Patient indicated he feels frustrated with Chapter process and attributes this to his symptoms of anxiety, depression, passive SI. Patient indicates he is attempting to learn alternative coping mechanisms for dealing with the [employer] and being chaptered while he is in the inpatient environment. VITALS: See below NEW TEST RESULTS: Please see below. Patient's labs on admission indicate low HCT and elevated ALT, ALT. ALT remains elevated on recheck, PA is aware and monitoring. 11/06/16 liver US unremarkable. PAST MEDICAL/SURGICAL HISTORY: Asthma, recent wisdom tooth extraction on . Patient denies history of seizure or head injury and denies other chronic health conditions. UDS negative on admission 11/01/16 EKG SINUS RHYTHM POSSIBLE INFERIOR MYOCARDIAL INFARCTION, OF INDETERMINATE AGE WITH POSTERIOR EXTENSION PROB EARLY REOLAR CHANGES NO PRIOR CLINICAL CORRELATION. PA is aware and has requested consult with Dr. Ying; patient is asymptomatic. 11/03/16 SINUS RHYTHM POSSIBLE INFERIORPOST MYOCARDIAL INFARCTION, OF INDETERMINATE AGE INFEFOLAT ST ELEV PERSISTS CLINICAL MAXIM. MNaldoD. has evaluated, patient is asymptomatic, recommendation being made for follow-up outpatient. CURRENT MEDICATIONS: See below MENTAL STATUS EXAMINATION: Patient is a 30-year-old single male who is pleasant and cooperative, makes fair eye contact today, exhibits adequate personal hygiene, is dressed in hospital clothing, ambulance was steady gait, is obese, appears stated age. Speech: Is slow, low volume, normal rhythm, coherent, spontaneous. Language skills are intact. Thought processes: Clear, goal-directed. Thought content: Rational, logical. Abstract reasoning: Appears intact Description of associations: Intact. Description of abnormal or psychotic thoughts: denies hallucinations, delusions , preoccupation with violence, homicidal or suicidal ideation, and obsessions]. Judgment: Limited Insight: Poor, some improvement noted today. Orientation to time, place and person. Recent and remote memory: Appears intact Attention span and concentration: Limited. Language: Normal. Fund of knowledge: Adequate. Mood: "Okay, I just don't want to go back to unit." Appears depressed, anxious, no mood lability noted at time of interaction. Affect: Blunted, brightens X 1, congruent with mood. DIAGNOSES: Adjustment disorder with mixed anxiety and depressed mood ASSESSMENT: Patient appears to be adjusting to unit, has been isolating to room less, has been visible on unit, and is attending groups. Patient has been encouraged to participate in unit programming in order to facilitate the development of new coping mechanisms. Patient denies medication side effects, is requesting Trazodone dose increase to address new latency challenge. Patient denies medication side effects. Patient denies current suicidal or homicidal ideation and verbalizes awareness of how to access supportive services on the unit if needed. Will continue to monitor patient's response to medications, monitor for side effects, evaluate resolution of suicidal ideation, patient safety, and readiness for discharge. Patient continues to state he desires MEB from , is aware he is being chaptered which is scheduled to finalize within the next 30-40 days. Patient verbalizes understanding of discharge plan will entail return to [facility] for safety check and participation in outpatient behavioral health services for psychotherapy and medication management. food and beverage coordinator has been asked to communicate with [facility] regarding preparing patient for discharge and return to [facility]. MANAGEMENT PLAN: Continue Wellbutrin XL 150 mg po q am. Increase trazodone to 150 mg po hs PRN insomnia Maintain safety precautions Patient to attend groups and participate in unit programming to develop coping strategies Engage patient in discharge planning process and arrange meeting with command to evaluate safe discharge planning when appropriate Patient to follow up with [facility] upon discharge TIME SPENT: 35 minutes Vital Signs Vital Signs Date Time Temp Pulse Resp B/P Pulse Ox O2 Delivery O2 Flow Rate FiO2 11/07/16 06:00 97.6 77 16 96/51 Laboratory Data 24H Labs Laboratory Tests 2 11/07/16 08:11: Blood Urea Nitrogen 15, Creatinine 1.09, Sodium Level 141, Potassium Level 4.2, Chloride Level 102, Carbon Dioxide Level 28, Calcium Level 9.2, Aspartate Amino Transf (AST/SGOT) 36, Alanine Aminotransferase (ALT/SGPT) 97H, Alkaline Phosphatase 82, Total Bilirubin 0.3, Total Protein 7.4, Albumin 3.8, Albumin/ Globulin Ratio 1.06, Anion Gap 11, Glomerular Filtration Rate > 60.0 CBC/BMP Laboratory Tests 11/07/16 08:11 Calcium Level 9.2, Aspartate Amino Transf (AST/SGOT) 36, Alanine Aminotransferase (ALT/SGPT) 97 H, Alkaline Phosphatase 82, Total Bilirubin 0.3, Total Protein 7.4, Albumin 3.8 Current Medications Current Medications Acetaminophen (Tylenol Tab) 650 mg Q6HP PRN PO HEADACHE or DISCOMFORT Last administered on 11/05/16t 21:59; Start 11/01/16 at 00:00; Stop 12/01/16 at 00:00 Al Hydrox/Mg Hydrox/Simethicone (Mylanta) 30 ml Q4HP PRN PO HEARTBURN/ INDIGESTION; Start 11/01/16 at 00:00; Stop 12/01/16 at 00:00 Albuterol Sulfate (Proventil, Ventolin Hfa) 2 puff Q4HP PRN INH SHORTNESS OF BREATH; Start 11/01/16 at 00:00; Stop 12/01/16 at 00:00 Amoxicillin/ Clavulanate Potassium (Augmentin) 875 mg BID PO Last administered on 11/07/16 08:43; Start 11/01/16 at 09:00; Stop 11/08/16 at 08:59 Bupropion HCl (Wellbutrin Xl) 150 mg QAM PO Last administered on 11/07/16 09: 14; Start 11/02/16 at 09:00; Stop 12/02/16 at 08:59 Chlorhexidine Gluconate (Peridex Oral Rinse) 15 ml PC SSP Last administered on 11/07/16 18:16; Start 11/01/16 at 13:00; Stop 12/01/16 at 12:59 Home Med (Med Rec Complete!) ASDIRECTED XX ; Start 10/31/16 at 19:15; Stop at 19:15; Status DC Ibuprofen (Advil) 800 mg Q8HP PRN PO PAIN Last administered on 11/07/16 08:44 ; Start 11/01/16 at 00:00; Stop 12/01/16 at 00:00 Magnesium Hydroxide (Milk Of Magnesia) 30 ml DAILYPRN PRN PO CONSTIPATION; Start 11/01/16 at 00:00; Stop 12/01/16 at 00:00 Salmeterol Xinafoate/ Fluticasone (Advair Hfa 230/ 21) 2 puff BID INH Last administered on 11/07/16 08:44; Start 10/31/16 at 21:00; Stop 11/30/16 at 20:59 Trazodone HCl (Desyrel) 50 mg QHSP PRN PO INSOMNIA Last administered on 23:23; Start 11/01/16 at 00:00; Stop 11/05/16 at 16:07; Status DC Trazodone HCl (Desyrel) 100 mg QHSP PRN PO INSOMNIA Last administered on 22:46; Start 11/05/16 at 16:15; Stop 12/05/16 at 16:14 Allergies Coded Allergies: No Known Allergies (Unverified , 9/26/16) Sonia Maxwell Nov 07, 2016 18:55
[2016-11-07] MEDS: traZODone 100 MG TAB PO PRN (22:57)
[2016-11-08 06:26] VITALS: BP 138/90
[2016-11-08 07:24] LABS: ALBUMIN 3.9 GM/DL (3.2-5.2); ALBUMIN/GLOBULIN RATIO 1.08 (1.00-1.93); ALKALINE PHOSPHATASE 85 U/L (45-117); ALT/SGPT 90 U/L (12-78); ANION GAP 10 MEQ/L (8-16); AST/SGOT 29 U/L (15-37); BILIRUBIN,TOTAL 0.3 MG/DL (0.2-1.0); BLOOD UREA NITROGEN 19 MG/DL (7-18); CALCIUM LEVEL 9.4 MG/DL (8.5-10.1); CARBON DIOXIDE LEVEL 28 MEQ/L (21-32); CHLORIDE LEVEL 103 MEQ/L (98-107); CREATININE FOR GFR 1.04 MG/DL (0.70-1.30); GLOMERULAR FILTRATION RATE > 60.0 (>60); GLUCOSE, FASTING 91 MG/DL (70-105); POTASSIUM SERUM 4.2 MEQ/L (3.5-5.1); SODIUM LEVEL 141 MEQ/L (136-145); TOTAL PROTEIN 7.5 GM/DL (6.4-8.2)
[2016-11-08] MEDS: buPROPion **XL** TABLET 150MG (WELLBUTRIN XL) PO SCH (09:39)
[2016-11-08] MEDS: ADVAIR HFA 230/21 INHALER INH SCH ×2 (09:39→23:11)
[2016-11-08] MEDS: CHLORHEXIDINE GLUCONATE 0.12 % 15ML UDC (PERIDEX ORAL RINSE) SSP SCH ×3 (09:41→19:02)
[2016-11-08] MEDS: IBUPROFEN 800 MG TAB PO PRN ×2 (09:41→23:11)
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
[2016-11-08] MEDS: AUGMENTIN 875 MG TAB PO SCH ×2 (12:28→23:11)
[2016-11-08 18:00] VITALS: BP 148/72
[2016-11-09 06:27] VITALS: BP 144/61
[2016-11-09] MEDS: AUGMENTIN 875 MG TAB PO SCH ×2 (08:40→22:35)
[2016-11-09] MEDS: CHLORHEXIDINE GLUCONATE 0.12 % 15ML UDC (PERIDEX ORAL RINSE) SSP SCH ×3 (08:40→17:53)
[2016-11-09] MEDS: ADVAIR HFA 230/21 INHALER INH SCH ×2 (08:40→22:35)
[2016-11-09] MEDS: buPROPion **XL** TABLET 150MG (WELLBUTRIN XL) PO SCH (08:41)
[2016-11-09 18:00] VITALS: BP 147/76
--- NOTE | 2016-11-09 18:31 | IPNPDOC ---
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 Cargo Inspector met with patient today to assess treatment progress on inpatient unit. Patient informed show card writer he refused his medications this morning initially stating due to medication ineffectiveness, then stating he feels he no longer needs the medication. Cargo Inspector reminds patient of conversation which took place yesterday pertaining to medication dose increase which patient denied citing lack of need. Patient informed show card writer his reason for not taking the medication is that he feels his emotional problems all stem from " stuff," not from a source which would benefit from psychotropic medication treatment. Patient denies need for medication and denies desire for new antidepressant medication trial. Patient denies suicidal and homicidal ideation, notes he last experienced passive fleeting suicidal ideation last night, is unable to provide show card writer with details of passive ideation stating, "I don't really remember," denies having plan or intent to harm self at the time. Patient relates current anxiety level of 4/10, depression 5/10, denies audiovisual hallucinations, denies urge to engage in self-injurious behavior. Patient denies symptoms of irritability, impulsivity, and agitation, reiterates he would prefer to be MEB' d and not chaptered out of the [employer]. Patient states his sleep has improved but notes he has been experiencing a.m. grogginess which he attributes to sleep aid , but informs show card writer he did not take trazodone last night. Patient declines medication dosing adjustment or change in sleep medication. Patient remains visible on unit, has been attending groups, socializing with peers, indicates his energy level is stable, reports improved appetite. Patient presents with no signs of acute distress at time of interaction. Patient continues to refuse to allow contact with family, show card writer again attempted to explain to patient the importance of having a strong support system in place at time of discharge. Patient continues to express future orientation related to plans to return home to see family and attend college for software design after he exits the [employer]. VITALS: See below NEW TEST RESULTS: Please see below. Patient's labs on admission indicate low HCT and elevated ALT, ALT. ALT remains elevated on recheck, PA is aware and monitoring, is recommending outpatient follow-up post discharge. 11/06/16 liver US unremarkable. PAST MEDICAL/SURGICAL HISTORY: Asthma, recent wisdom tooth extraction on . Patient denies history of seizure or head injury and denies other chronic health conditions. UDS negative on admission 11/01/16 EKG SINUS RHYTHM POSSIBLE INFERIOR MYOCARDIAL INFARCTION, OF INDETERMINATE AGE WITH POSTERIOR EXTENSION PROB EARLY REOLAR CHANGES NO PRIOR CLINICAL CORRELATION. ALIYA is aware and has requested consult with Dr. Ying; patient is asymptomatic. 11/03/16 SINUS RHYTHM POSSIBLE INFERIORPOST MYOCARDIAL INFARCTION, OF INDETERMINATE AGE INFEFOLAT ST ELEV PERSISTS CLINICAL MAXIM. Talita has evaluated, patient is asymptomatic, recommendation being made for follow-up outpatient. CURRENT MEDICATIONS: See below MENTAL STATUS EXAMINATION: Patient is a 30-year-old single male who is pleasant and cooperative, makes limited eye contact today, exhibits adequate personal hygiene, is dressed in hospital clothing, ambulates with steady gait, is obese, appears stated age. Speech: Is of normal rate, rhythm, volume, coherent, spontaneous. Language skills are intact. Thought processes: Clear, goal-directed. Thought content: Rational, logical. Abstract reasoning: Appears intact Description of associations: Intact. Description of abnormal or psychotic thoughts: denies hallucinations, delusions , preoccupation with violence, homicidal or suicidal ideation, and obsessions]. Judgment: Limited Insight: Limited, some improvement noted today. Orientation to time, place and person. Recent and remote memory: Appears intact Attention span and concentration: Limited. Language: Normal. Fund of knowledge: Adequate. Mood: "Okay, I'm fine, I just don't want to be around my unit." Appears less depressed, anxious, no mood lability noted at time of interaction. Affect: Constricted, brightens several times during interaction, expresses humor during interaction DIAGNOSES: Adjustment disorder with mixed anxiety and depressed mood ASSESSMENT: Patient appears to be adjusting to unit, has been visible on unit, interacting with peers and attending groups. Patient refused to take Wellbutrin this morning, is aware medication will remain available to him should he elect to take it tomorrow, did not utilize trazodone for sleep last night. Patient denies current suicidal or homicidal ideation and verbalizes awareness of how to access supportive services on the unit if needed. Patient is aware [facility] is on 4 day weekend and will therefore return to [facility] on Saturday of next week. Will continue to monitor patient's response to medications should he elect to take them, monitor for side effects, evaluate resolution of suicidal ideation, patient safety, and readiness for discharge. Patient continues to state he desires MEB from , is aware he is being chaptered which is scheduled to finalize within the next 30-40 days. Patient verbalizes understanding of discharge plan will entail return to [facility] for safety check and participation in outpatient behavioral health services for psychotherapy and medication management. environment coordinator has arranged for chain of [facility] meeting to occur Saturday at 08:00, after which patient will be transported to [facility] where he has a 10:00 appointment. MANAGEMENT PLAN: Encourage patient to take psychotropic medication. Continue Wellbutrin XL 150 mg po q am and Trazodone 100 mg po hs PRN insomnia Maintain safety precautions Patient to attend groups and participate in unit programming to develop coping strategies Engage patient in discharge planning process and arrange meeting with [facility] to evaluate safe discharge planning when appropriate Patient to follow up with [facility] PCM upon discharge TIME SPENT: 35 minutes Vital Signs Vital Signs Date Time Temp Pulse Resp B/P Pulse Ox O2 Delivery O2 Flow Rate FiO2 11/09/16 06:27 98.2 82 16 144/61 Current Medications Current Medications Acetaminophen (Tylenol Tab) 650 mg Q6HP PRN PO HEADACHE or DISCOMFORT Last administered on 11/05/16 21:59; Start 11/01/16 at 00:00; Stop 12/01/16 at 00:00 Al Hydrox/Mg Hydrox/Simethicone (Mylanta) 30 ml Q4HP PRN PO HEARTBURN/ INDIGESTION; Start 11/01/16 at 00:00; Stop 12/01/16 at 00:00 Albuterol Sulfate (Proventil, Ventolin Hfa) 2 puff Q4HP PRN INH SHORTNESS OF BREATH; Start 11/01/16 at 00:00; Stop 12/01/16 at 00:00 Amoxicillin/ Clavulanate Potassium (Augmentin) 875 mg BID PO Last administered on 11/09/16 08:40; Start 11/01/16 at 09:00; Stop 11/11/16 at 08:59 Bupropion HCl (Wellbutrin Xl) 150 mg QAM PO Last administered on 11/08/16 09: 39; Start 11/02/16 at 09:00; Stop 12/02/16 at 08:59 Chlorhexidine Gluconate (Peridex Oral Rinse) 15 ml PC SSP Last administered on 11/09/16 17:53; Start 11/01/16 at 13:00; Stop 12/01/16 at 12:59 Home Med (Med Rec Complete!) ASDIRECTED XX ; Start 10/31/16 at 19:15; Stop at 19:15; Status DC Ibuprofen (Advil) 800 mg Q8HP PRN PO PAIN Last administered on 11/08/16 23:11 ; Start 11/01/16 at 00:00; Stop 12/01/16 at 00:00 Magnesium Hydroxide (Milk Of Magnesia) 30 ml DAILYPRN PRN PO CONSTIPATION; Start 11/01/16 at 00:00; Stop 12/01/16 at 00:00 Salmeterol Xinafoate/ Fluticasone (Advair Hfa 230/ 21) 2 puff BID INH Last administered on 11/09/16 08:40; Start 10/31/16 at 21:00; Stop 11/30/16 at 20:59 Trazodone HCl (Desyrel) 50 mg QHSP PRN PO INSOMNIA Last administered on 23:23; Start 11/01/16 at 00:00; Stop 11/05/16 at 16:07; Status DC Trazodone HCl (Desyrel) 100 mg QHSP PRN PO INSOMNIA Last administered on 22:57; Start 11/05/16 at 16:15; Stop 12/05/16 at 16:14 Allergies Coded Allergies: No Known Allergies (Unverified , 05/21/16) Sonia Maxwell Nov 09, 2016 18:31
[2016-11-10 06:42] VITALS: BP 143/92
[2016-11-10] MEDS: buPROPion **XL** TABLET 150MG (WELLBUTRIN XL) PO SCH (09:00)
[2016-11-10] MEDS: CHLORHEXIDINE GLUCONATE 0.12 % 15ML UDC (PERIDEX ORAL RINSE) SSP SCH ×3 (09:10→18:30)
[2016-11-10] MEDS: ADVAIR HFA 230/21 INHALER INH SCH ×2 (09:10→21:24)
[2016-11-10] MEDS: AUGMENTIN 875 MG TAB PO SCH ×2 (09:10→21:22)
[2016-11-10 18:00] VITALS: BP 153/97
[2016-11-10] MEDS: IBUPROFEN 800 MG TAB PO PRN (21:24)
[2016-11-11 06:48] VITALS: BP 115/66
[2016-11-11] MEDS: buPROPion **XL** TABLET 150MG (WELLBUTRIN XL) PO SCH (09:00)
[2016-11-11] MEDS: ADVAIR HFA 230/21 INHALER INH SCH ×2 (09:27→21:00)
[2016-11-11] MEDS: CHLORHEXIDINE GLUCONATE 0.12 % 15ML UDC (PERIDEX ORAL RINSE) SSP SCH ×3 (09:27→18:10)
--- NOTE | 2016-11-11 15:20 | IPN ---
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 His present medications include bupropion 150 mg in the morning. I met with patient and staff following a potential incident in which the patient was threatened by another patient member. The other patient stated that Mr. Russ was mocking him or attempting to egg him on. When I met with Mr. Russ, he denied any knowledge of that affair, saying there had been some slight disagreement in group about where to sit. MENTAL STATUS EXAMINATION: The patient denied hallucinations, delusions, obsessions, compulsions, or phobias. His appearance was appropriate. His eye contact was good. His speech was quiet but well articulated. His mood was fair. Affect was flat. His memory of recent and remote events was intact. He was fully oriented with no loose associations. Unable at this time to determine his judgment. MANAGEMENT PLAN: No change in medication, but in order to protect this patient I had him placed on a one-to-one with room restriction. DIAGNOSIS: As per Sonia Maxwell Adjustment disorder with mixed anxiety and depressed mood. MTDD
[2016-11-11 18:00] VITALS: BP 130/85
[2016-11-11] MEDS: traZODone 100 MG TAB PO PRN (23:56)
[2016-11-12 06:35] VITALS: BP 138/68
[2016-11-12] MEDS: buPROPion **XL** TABLET 150MG (WELLBUTRIN XL) PO SCH (09:00)
[2016-11-12] MEDS: CHLORHEXIDINE GLUCONATE 0.12 % 15ML UDC (PERIDEX ORAL RINSE) SSP SCH ×3 (09:55→18:06)
[2016-11-12] MEDS: ADVAIR HFA 230/21 INHALER INH SCH ×2 (09:55→20:09)
--- NOTE | 2016-11-12 15:05 | IPNPDOC ---
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 Movie Star met with patient today to assess treatment progress on inpatient unit. Patient continues to decline Wellbutrin, indicates he has taken trazodone for sleep only intermittently during his stay and states he does not need a prescription for medication at discharge. Patient indicates he's feeling " pretty good," denies need for Wellbutrin adding, my symptoms are just related to the , I don't need medication." Patient again declines new antidepressant medication trial. Patient denies suicidal and homicidal ideation , notes he last experienced passive fleeting suicidal yesterday, remains unable to provide typewriter assembly and parts inspector with details of passive ideation, notes suicidal ideation was "something about it might be easier if I just wasn't here," adds he does not remember the details, denies having plan or intent to harm himself at this time. Patient relates current anxiety level of 3/10, depression 3/10, denies audiovisual hallucinations, denies urge to engage in self-injurious behavior. Patient denies symptoms of irritability, impulsivity, and agitation, reiterates he would prefer to be MEB'd and not chaptered out of the [employer]. Patient reports improvement to his sleep, denies challenges with concentration and focus, and describes energy level as "good." Patient states appetite is stable. Patient has remained visible on unit. Patient was apparently involved in a verbal altercation with another patient on the unit over the weekend, was not the initiator, and at no point lost behavioral control. Patient was briefly placed on one-to-one for his own safety. Patient continues to attend groups, socializes with peers, and has been cooperative with staff. Patient denies challenges with impulsivity and describes his mood as level, presents with no signs of acute distress at time of interaction. Patient continues to refuse to allow contact with family, typewriter assembly and parts inspector again attempted to explain to patient the importance of having a strong support system in place at time of discharge. Patient continues to express future orientation related to plans to return home to see family and attend college for software design after he exits the [employer]. VITALS: See below NEW TEST RESULTS: Please see below. Patient's labs on admission indicate low HCT and elevated ALT, ALT. ALT remains elevated on recheck, PA is aware and monitoring, is recommending outpatient follow-up post discharge. 11/06/16 liver US unremarkable. PAST MEDICAL/SURGICAL HISTORY: Asthma, recent wisdom tooth extraction on . Patient denies history of seizure or head injury and denies other chronic health conditions. UDS negative on admission 11/01/16 EKG SINUS RHYTHM POSSIBLE INFERIOR MYOCARDIAL INFARCTION, OF INDETERMINATE AGE WITH POSTERIOR EXTENSION PROB EARLY REOLAR CHANGES NO PRIOR CLINICAL CORRELATION. PA is aware and has requested consult with Dr. Ying; patient is asymptomatic. 11/03/16 SINUS RHYTHM POSSIBLE INFERIORPOST MYOCARDIAL INFARCTION, OF INDETERMINATE AGE INFEFOLAT ST ELEV PERSISTS CLINICAL MAXIMNaldo Sanon has evaluated, patient is asymptomatic, recommendation being made for follow-up outpatient. CURRENT MEDICATIONS: See below MENTAL STATUS EXAMINATION: Patient is a 30-year-old single male who is pleasant and cooperative, makes improved eye contact today, exhibits adequate personal hygiene, is dressed in hospital clothing, ambulates with steady gait, is obese, appears stated age. Speech: Is of normal rate, rhythm, volume, coherent, spontaneous. Language skills are intact. Thought processes: Clear, goal-directed. Thought content: Rational, logical. Abstract reasoning: Appears intact Description of associations: Intact. Description of abnormal or psychotic thoughts: denies hallucinations, delusions , preoccupation with violence, homicidal or suicidal ideation, and obsessions]. Judgment: Limited Insight: Limited, some improvement noted today. Orientation to time, place and person. Recent and remote memory: Appears intact Attention span and concentration: Limited. Language: Normal. Fund of knowledge: Adequate. Mood: "Okay, a little nervous about going back to my unit, but I'm all right." Appears less depressed, less anxious, no mood lability noted at time of interaction. Affect: Constricted, brightens several times during interaction, expresses humor during interaction DIAGNOSES: Adjustment disorder with mixed anxiety and depressed mood ASSESSMENT: Patient appears to be adjusting to unit, has been visible on unit, interacting with peers and attending groups. Patient initially agreed to trial antidepressant, expressed concerns about weight gain and requested medication with reduced risk. Patient was prescribed Wellbutrin XL 150 mg po q am which he has declined for the past 4 days siting lack of need, is today requesting that medication be discontinued. Patient has been utilizing trazodone intermittently for sleep during his stay, informs typewriter assembly and parts inspector that he does not need prescription for sleep aid at time of discharge. Patient denies current suicidal or homicidal ideation and verbalizes awareness of how to access supportive services on the unit if needed. Patient is aware he is scheduled for discharge to return to [place] tomorrow. Will continue to evaluate resolution of suicidal ideation, patient safety, and readiness for discharge. Patient continues to state he desires MEB from , is aware he is being chaptered which is scheduled to finalize within the next 30 days. Patient verbalizes understanding of discharge plan will entail return to [place] for safety check and participation in outpatient behavioral health services for psychotherapy and medication management. department coordinator has arranged for chain of command meeting to occur tomorrow morning at 08:00, after which patient will be transported to [facility] where he has a 10:00 appointment. MANAGEMENT PLAN: Discontinue Wellbutrin XL 150 mg po q am. Continue Trazodone 100 mg po hs PRN insomnia Maintain safety precautions Patient to attend groups and participate in unit programming to develop coping strategies Engage patient in discharge planning process and arrange meeting with [facility] to evaluate safe discharge planning when appropriate Patient to follow up with [facility] PCM upon discharge TIME SPENT: 35 minutes Vital Signs Vital Signs Date Time Temp Pulse Resp B/P Pulse Ox O2 Delivery O2 Flow Rate FiO2 11/12/16 12:21 Room Air 11/12/16 06:35 97.7 86 18 138/68 Current Medications Current Medications Acetaminophen (Tylenol Tab) 650 mg Q6HP PRN PO HEADACHE or DISCOMFORT Last administered on 11/05/16t 21:59; Start 11/01/16 at 00:00; Stop 12/01/16 at 00:00 Al Hydrox/Mg Hydrox/Simethicone (Mylanta) 30 ml Q4HP PRN PO HEARTBURN/ INDIGESTION; Start 11/01/16 at 00:00; Stop 12/01/16 at 00:00 Albuterol Sulfate (Proventil, Ventolin Hfa) 2 puff Q4HP PRN INH SHORTNESS OF BREATH; Start 11/01/16 at 00:00; Stop 12/01/16 at 00:00 Amoxicillin/ Clavulanate Potassium (Augmentin) 875 mg BID PO Last administered on 11/10/16 21:22; Start 11/01/16 at 09:00; Stop 11/11/16 at 08:59; Status DC Bupropion HCl (Wellbutrin Xl) 150 mg QAM PO Last administered on 11/08/16 09: 39; Start 11/02/16 at 09:00; Stop 12/02/16 at 08:59 Chlorhexidine Gluconate (Peridex Oral Rinse) 15 ml PC SSP Last administered on 11/12/16 12:47; Start 11/01/16 at 13:00; Stop 12/01/16 at 12:59 Home Med (Med Rec Complete!) ASDIRECTED XX ; Start 10/31/16 at 19:15; Stop at 19:15; Status DC Ibuprofen (Advil) 800 mg Q8HP PRN PO PAIN Last administered on 11/10/16 21:24 ; Start 11/01/16 at 00:00; Stop 12/01/16 at 00:00 Magnesium Hydroxide (Milk Of Magnesia) 30 ml DAILYPRN PRN PO CONSTIPATION; Start 11/01/16 at 00:00; Stop 12/01/16 at 00:00 Salmeterol Xinafoate/ Fluticasone (Advair Hfa 230/ 21) 2 puff BID INH Last administered on 11/12/16 09:55; Start 10/31/16 at 21:00; Stop 11/30/16 at 20:59 Trazodone HCl (Desyrel) 50 mg QHSP PRN PO INSOMNIA Last administered on 23:23; Start 11/01/16 at 00:00; Stop 11/05/16 at 16:07; Status DC Trazodone HCl (Desyrel) 100 mg QHSP PRN PO INSOMNIA Last administered on 23:56; Start 11/05/16 at 16:15; Stop 12/05/16 at 16:14 Allergies Coded Allergies: No Known Allergies (Unverified , 05/21/16) Sonia Maxwell Nov 12, 2016 15:04
[2016-11-12 18:00] VITALS: BP 120/79
[2016-11-12] MEDS: traZODone 100 MG TAB PO PRN (22:31)
[2016-11-13 06:38] VITALS: BP 130/58
[2016-11-13] MEDS: ADVAIR HFA 230/21 INHALER INH SCH (07:35)
[2016-11-13] MEDS: CHLORHEXIDINE GLUCONATE 0.12 % 15ML UDC (PERIDEX ORAL RINSE) SSP SCH (07:35)
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
== END 2016-11-13 09:10 | disposition home or self-care (01) | DRG 882 ==
LOC: EDBD 15:50 → M ED 17:34 → M ED INP 18:49 → M PSY 22:40
PROVIDERS: ADMIT Psychiatry & Neurology Psychiatry; ATTEND Psychiatry & Neurology Psychiatry
DX: F43.25 Adjustment disorder with mixed disturbance of emotions and conduct (principal); J45.909 Unspecified asthma, uncomplicated